=== PATIENT | female | born 1975 | race African-American/Black ===

== ENCOUNTER 2019-07-16 11:32 | Emergency (ER) | payer MEDICAID ==
[~2019-07-16] VITALS: Ht 172.7 cm; Wt 70.0 kg
[2019-07-16 11:41] VITALS: BP 138/98
== END 2019-07-16 13:57 | disposition left against medical advice (07) ==
LOC: ER 11:50
DX: Z53.21 Procedure and treatment not carried out due to patient leaving prior to being seen by health care provider (principal)

== ENCOUNTER 2020-04-13 00:44 | Emergency (ER) | payer MEDICAID ==
[~2020-04-13] VITALS: Ht 162.6 cm; Wt 86.0 kg
[2020-04-13] MEDS ORDERED: PHEN100C4 MT ×2 (01:48→01:49)
[2020-04-13 02:00] VITALS: BP 133/74
[2020-04-13] MEDS ORDERED: PHENYTOIN SODIUM EXTENDED 100MG CAPSULE PO ONE (02:00)
== END 2020-04-13 02:27 | disposition home or self-care (01) ==
LOC: ER 00:44
DX: R56.9 Unspecified convulsions (principal); I10 Essential (primary) hypertension; Z91.14 Patient's other noncompliance with medication regimen; Z86.73 Personal history of transient ischemic attack (TIA), and cerebral infarction without residual deficits
CPT/HCPCS: 81025; 82962; 93005; 99283